=== PATIENT | female | born 1965 ===

== ENCOUNTER 2019-06-30 22:23 | Emergency (ER) | payer BC, OTHER ==
[2019-06-30] MEDS ORDERED: traMADol 50 MG Tab PO ONE ×2 (22:24→23:00)
[2019-06-30] MEDS ORDERED: Acetaminophen/HYDROcodone 325-5 MG Tab PO ONE (23:40)
--- NOTE | 2019-06-30 23:54 | EDM.PDOC ---
ED HPI GENERAL MEDICAL PROBLEM - General Chief Complaint: Back Pain or Injury Stated Complaint: BACK PAIN Time Seen by Provider: 06/30/19 22:30 Source of Information: Reports: Patient, RN Notes Reviewed History Limitations: Reports: No Limitations - History of Present Illness INITIAL COMMENTS - FREE TEXT/NARRATIVE: ED with c/o severe low back pain. No recent injury. Notes chronic pain on Tramadol. Admits forgot to pick prescription on Monday and Pharmacy not open on weekend. Last dose yesterday. Also sore throat. No cough. No nausea or vomiting. Pain more severe without medication but in same area. Normally decreased sensation in feet when upright. Usually decreases when lying down. No difficulty with urination. 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: Reports: Acetaminophen, NSAIDS Middle Back Pain Score (Numeric/FACES): 8 - Related Data Allergies Allergy/AdvReac Type Severity Reaction Status Date / Time No Known Allergies Allergy Verified 06/30/19 22:40 Home Meds: Home Meds traMADol HCl [Tramadol HCl] 1 tab PO ASDIRECTED PRN 08/26/14 [History] Past Medical History Gastrointestinal History: Reports: Other (See Below) Other Gastrointestinal History: blood in stool due for colonoscopy Musculoskeletal History: Reports: Back Pain, Chronic Social & Family History - Tobacco Use Smoking Status *Q: Never Smoker - Caffeine Use Caffeine Use: Reports: Coffee, Soda, Tea - Recreational Drug Use Recreational Drug Use: No ED ROS GENERAL - Review of Systems Review Of Systems: Comprehensive ROS is negative, except as noted in HPI. ED EXAM,LOWER BACK PAIN/INJURY - Physical Exam Exam: See Below Exam Limited By: No Limitations General Appearance: Alert, Mild Distress Eye Exam: Bilateral Eye: EOMI Ears: Normal External Exam, Normal TMs Nose: Normal Inspection Throat/Mouth: Normal Inspection Head: Atraumatic, Normocephalic Neck: Normal Inspection, Tender Lateral Respiratory/Chest: Lungs Clear, Normal Breath Sounds Cardiovascular: Normal Peripheral Pulses, Regular Rate, Rhythm, No Edema GI/Abdominal: Normal Bowel Sounds, Soft Back Exam: Full Range of Motion, Decreased Range of Motion, Paraspinal Tenderness (bilateral lumbar right greater), Vertebral Tenderness (lumbar) Neurological: Alert, Normal Plantar Flexion, Normal Gait, Normal Reflexes, Oriented x 3, Straight Leg Raise (R). No: Straight Leg Raise (L), Saddle Anesthesia, Difficulty Walking Psychiatric: Flat Affect Skin Exam: Warm, Dry, Intact, Normal Color Course - Vital Signs Last Recorded V/S: Last Vital Signs Temp 97.5 F 07/01/19 00:44 Pulse 60 07/01/19 00:44 Resp 18 07/01/19 00:44 BP 129/78 07/01/19 00:44 Pulse Ox 99 07/01/19 00:44 - Orders/Labs/Meds Orders: Active Orders 24 hr Category Date Time Status CULTURE STREP A CONFIRMATION [] Stat Lab 06/30/19 22:49 Results STREP SCRN A RAPID W CULT CONF [] Stat Lab 06/30/19 22:49 Results Meds: Medications Discontinued Medications Generic Name Dose Route Start Last Admin Trade Name Freq PRN Reason Stop Dose Admin Hydrocodone Bitart/Acetaminophen 1 tab 06/30/19 23:40 06/30/19 23:46 [place] 325-5 Mg PO 06/30/19 23:41 1 tab ONETIME ONE Administration Fentanyl 25 mcg 07/01/19 00:42 07/01/19 00:50 Sublimaze IM 07/01/19 00:43 25 mcg ONETIME ONE Administration Tramadol HCl 50 mg 06/30/19 23:00 06/30/19 23:05 Ultram PO 06/30/19 23:01 50 mg ONETIME ONE Administration Tramadol HCl Confirm 07/01/19 01:24 Ultram Administered 07/01/19 01:25 Dose 50 mg .ROUTE .STK-MED ONE Departure - Departure Time of Disposition: 23:37 Disposition: Home, Self-Care 01 Condition: Good Clinical Impression: Chronic low back pain Qualifiers: Back pain laterality: right Sciatica presence: without sciatica Qualified Code( s): M54.5 - Low back pain - Discharge Information *PRESCRIPTION DRUG MONITORING PROGRAM REVIEWED*: Yes *COPY OF PRESCRIPTION DRUG MONITORING REPORT IN PATIENT ALESHIA: No Instructions: Musculoskeletal Pain Forms: ED Department Discharge Additional Instructions: Tramadol 50mg every 8 hours as needed for severe pain #1 clinic follow up with primary care if sx not improving Sepsis Event Note - Evaluation Sepsis Screening Result: No Definite Risk - Focused Exam Vital Signs: Vital Signs Temp Pulse Resp BP Pulse Ox 07/01/19 00:44 97.5 F 60 18 129/78 99 06/30/19 22:29 96.5 F 56 L 18 126/70 100 Date Exam was Performed: 07/01/19 Time Exam was Performed: 03:34 - My Orders Last 24 Hours: My Active Orders 06/30/19 22:49 CULTURE STREP A CONFIRMATION [RM] Stat STREP SCRN A RAPID W CULT CONF [RM] Stat - Assessment/Plan Last 24 Hours: My Active Orders 06/30/19 22:49 CULTURE STREP A CONFIRMATION [RM] Stat STREP SCRN A RAPID W CULT CONF [RM] Stat
[2019-07-01] MEDS ORDERED: fentaNYL 100 MCG/2 ML SDV IM ONE (00:42)
[2019-07-01 00:45] VITALS: BP 129/78; PULSE 60
[2019-07-01] MEDS ORDERED: traMADol 50 MG Tab ONE (01:24)
== END 2019-07-01 01:28 | disposition home or self-care (01) ==
LOC: DL.ED 22:23
DX: M54.5 Low back pain (principal)
CPT/HCPCS: 87081; 87430; 87804; 96372; 99284; A9270; J3010